=== PATIENT | male | born 1985 | race Caucasian/White ===

== ENCOUNTER 2017-02-25 13:37 | Emergency (ER) | payer OTHER ==
[2017-02-25 13:46] VITALS: BP 133/72; PULSE 78; RESP 17; TEMP 97.9; O2SAT 96
[2017-02-25] MEDS ORDERED: IBUPROFEN 600 MG TAB PO ONE (14:01)
--- NOTE | 2017-02-25 14:04 | EDPHY ---
H & P Time Seen by Provider: 02/25/17 13:51 HPI/ROS: CHIEF COMPLAINT: Left chest pain HISTORY OF PRESENT ILLNESS: This 31-year-old man presents with left-sided chest discomfort for the last 48 hours. He says it is sharp and worse with movement or a deep breath located on the left chest that mid axillary line. No recent known trauma. No coughing or hemoptysis. No fever or chills. Symptoms moderate but he has not taken anything for pain. REVIEW OF SYSTEMS: Eye: no change in vision ENT: no sore throat Cardiac: HPI, no palpitations or syncope Pulmonary: HPI Abdomen: no vomiting, diarrhea, abdominal pain Musculoskeletal: no back pain Skin: no rash Neuro: no headache Constitutional: no fever : no urinary symptoms A comprehensive 10 point review of systems is otherwise negative aside from elements mentioned in the history of present illness. PAST MEDICAL HISTORY: Negative, no medications. Social history: Tobacco smoker, negative for cocaine Family history: Negative for venous thromboembolism General Appearance: Alert and conversant, cooperative. Eyes: No scleral icterus. ENT, Mouth: Normal mucous membranes. Respiratory: Breath sounds equal, no crepitus, no rales or rhonchi. He is splinting a little bit because of pain. Cardiovascular: Regular rate and rhythm. Gastrointestinal: Abdomen is soft and non tender. Specifically nontender over the spleen. Neurological: Alert and oriented x3. Normally conversant. Face symmetric, normal movement and sensation in all extremities. Skin: Warm and dry, no rashes. No zoster. Musculoskeletal: No peripheral edema and no joint swelling. No calf tenderness, and no unilateral leg swelling. Psychiatric: Not agitated. Emergency Department course/MDM: Age less than 50, heart rate less than 100, normal oxygen saturation, no prior history of venous thromboembolism. No recent trauma surgery or immobilization, no hemoptysis or estrogen or leg swelling. Oral ibuprofen 600, EKG and chest x-ray. More likely muscular or inflammatory. Results discussed with the patient at 2:20 p.m.; Plan for symptomatic treatment , considered multiple diagnoses including but not limited to splenic trauma or infarct and pulmonary embolism. More likely to be pleurisy. Smoking Status: Current every day smoker Constitutional: Initial Vital Signs Temperature (C) 36.6 C 02/25/17 13:43 Heart Rate 78 02/25/17 13:43 Respiratory Rate 17 02/25/17 13:43 Blood Pressure 133/72 H 02/25/17 13:43 O2 Sat (%) 96 02/25/17 13:43 O2 Delivery Mode Room Air Allergies/Adverse Reactions: No Known Allergies Allergy (Unverified 02/25/17 13:43) Home Medications: Medication Instructions Recorded NK [No Known Home Meds] 02/25/17 Medical Decision Making - Diagnostics EKG Interpretation: 12-lead EKG interpreted by me; official reading is in trace master. My interpretation is sinus rhythm without ischemic changes, rate 78 Imaging Results: Imaging Impressions Chest X-Ray 02/25/17 14:01 Impression: Normal. Chest x-ray personally interpreted as normal. Imaging: I viewed and interpreted images myself Differential Diagnosis: Differential diagnosis considered for chest pain including but not limited to myocardial ischemia, aortic dissection, pericarditis, pulmonary embolus, chest wall pain, pleural inflammation and pulmonary infectious causes. - Data Points Medications Given: Discontinued Medications Ibuprofen (Motrin) 600 mg PO EDNOW ONE Stop: 02/25/17 14:02 Last Admin: 02/25/17 14:13 Dose: 600 mg Departure - Departure Disposition: Home, Routine, Self-Care Clinical Impression: Pleurisy Chest pain Qualifiers: Chest pain type: unspecified Qualified Code(s): R07.9 - Chest pain, unspecified Condition: Good Instructions: Chest Pain (ED) Referrals: Kemi Montes De Oca MD [[facility] [place] Primary Care Provider] - 2-3 days, if not improved
--- NOTE | 2017-02-25 14:11 | CPEKG ---
Heart Rate: 78 RR Interval: 769 P-R Interval: 132 QRSD Interval: 96 QT Interval: 376 QTC Interval: 429 P [place]: 75 QRS [place]: 2 T Wave [place]: 66 EKG Severity - NORMAL ECG - EKG Impression: SINUS RHYTHM Electronically Signed By: Clark Sadler 25-Feb-2017 14:13:28
== END 2017-02-25 14:28 | disposition home or self-care (01) ==
DX: R09.1 Pleurisy (principal); F17.200 Nicotine dependence, unspecified, uncomplicated